=== PATIENT | female | born 1985 | race Caucasian/White ===

== ENCOUNTER 2017-09-30 21:25 | Inpatient (IN) | payer OTHER ==
[~2017-09-30] VITALS: Ht 160 cm; Wt 125.6 kg
[2017-09-30] MEDS ORDERED: LR(*) 1000 ML BAG 1,000 ML IV PRN (21:27)
[2017-09-30] MEDS ORDERED: ceFAZolin(*) 2GM/D5W 50ML 50 ML IVPB ONE (21:27)
[2017-09-30] MEDS ORDERED: METOCLOPRAMIDE 10 MG/2 ML SDV IVP ONE (21:30)
[2017-09-30] MEDS ORDERED: FAMOTIDINE 20 MG/50 ML PREMIX IVPB ONE (21:30)
[2017-09-30 21:35] VITALS: BP 154/78; Ht 160 cm; Wt 125.6 kg
[2017-09-30] MEDS ORDERED: PREN-127 PO (22:07)
[2017-09-30] MEDS ORDERED: NS(*) 0.9% 1000 ML BAG 1,000 ML IV ONE (22:30)
[2017-10-01] VITALS (17 sets, daily range): BP systolic 100–132; BP diastolic 53–94
[2017-10-01] MEDS ORDERED: LR(*) 1000 ML BAG 1,000 ML IV SCH (01:02)
[2017-10-01] MEDS ORDERED: OXYTOCIN 30 UNIT/D5LR 500 ML 500 ML ONE (01:23)
[2017-10-01] MEDS ORDERED: MORPHINE PF 5 MG/10 ML AMP ONE (01:24)
[2017-10-01] MEDS ORDERED: OXYTOCIN 10 UNIT/ML SDV ONE (01:24)
[2017-10-01 01:35] LABS: PLATELET COUNT, AUTOMATED 145 K/uL (150-450)
[2017-10-01] MEDS ORDERED: ONDANSETRON 4 MG/2 ML VIAL IVP ONE (01:35)
--- NOTE | 2017-10-01 01:38 | History & Physical ---
History of Present Illness EDC per U/S: Oct 07, 2013 Estimated Gestational Age: 39 Chief Complaint Contractions History of Present Illness 32yo at 39wks presents with UCx since 1400hrs yesterday. She presented with possible ROM and UCx. Amnisure is negative. However, despite IVF she has continued to have increasingly painful UCx. She denies VB. +FM. No preeclampsia symptoms. PNR reviewed. c/b hx of and desire for repeat; and prepregnancy BMI 45. History Patient's Blood Type: B Positive Rubella Status: Immune Group B Strep Screen: Negative Obstetrical History: G1: 36wk FAVD, with reported skull fracture of the baby G2: 39wk PLTCD, failed induction (8#) G3: Current, last US revealed 8#9oz Allergies: Coded Allergies: No Known Drug Allergies (Unverified , 09/30/17) Social History: No T/E/D. Med Rec Home Meds Reported Medications Vits W-Ca,Fe,Fa(<1MG) ( VITAMINS) 1 Each Tablet, 1 EACH PO DAILY, TAB 09/30/17 Review of Systems Constitutional: No Fever Neurological: No Syncope, No Dizziness Eyes: No Vision Change Cardiovascular: No Chest Pain Respiratory: No Shortness of Breath Gastrointestinal: No Nausea, No Vomiting, No Diarrhea Genitourinary: No Dysuria Musculoskeletal: No Pain Psychiatric: No Depression, No Anxiety Exam General Exam Vital Signs VS reviewed Initial BP is elevated, but has settled to normal range after arrival General Apperance: Alert/Awake/No Acute Distress Neuro: No Gross deficits Eyes: Normal Extraocular Movement & Vison Cardiovascular: Regular Rate and Rhythm Respiratory: No Respiratory Distress Abdomen: Gravid - Non-Tender : Normal Musculoskeletal: No Weakness/Pain Extremities: No Cyanosis,Clubbing or Edema Integumentary: Skin Intact without Lesions or Rash Psychological: Alert & Oriented X3, Appropriate Mood & Affect Cervical Dialation: 1 Cervical Effacement (%): 50 Cervical Consistency: Firm Cervical Position: Posterior Station: -2 Presentation: Vertex Uterine Contractions(Q min): 5 Uterine Contraction Strength: Strong UC Resting Tone: Soft Fetus Feeling Movement?: Yes FHT Category: I Medical Decision Making Pre-Admit Course Medical Record Review: Yes Assessment and Plan Problems: (1) Spontaneous onset of labor Assessment & Plan: 32yo at 39wks presents with UCx since 1400hrs yesterday. She presented with possible ROM and UCx. Amnisure is negative. However, despite IVF she has continued to have increasingly painful UCx. Will proceed with RLTCD and BTL. (2) History of section complicating Assessment & Plan: As above. Posterior placenta. (3) Request for sterilization Assessment & Plan: Discussed R/B/A of surgical sterilization. She has already discussed with her primary OB and is absolutely sure she would like to proceed. She does not desire future fertility. Her is present for the discussion and agrees. Will proceed with BTL. (4) Obesity affecting Assessment & Plan: Prepregnancy BMI 45. Now BMI is 49. Will plan Lovenox daily while inpatient to start POD#1. Problem Qualifiers (1) Obesity affecting : Trimester: third trimester Qualified Codes: O99.213 - Obesity complicating , third trimester KELSEY CODY MD October 01, 2017 01:38
[2017-10-01] MEDS ORDERED: OXYC-865 PO (01:41)
[2017-10-01] MEDS ORDERED: IBUP800T37 PO (01:41)
--- NOTE | 2017-10-01 02:58 | Post Operative Note ---
Operative Note - BAND DIRECTOR Operative Day Date: October 01, 2017 Physicians Surgeon: Rosemary Third Rail Installer: David Paulson RN Anesthesia: Spinal, Chapo Bejarano Diagnosis Pre-Op Diagnosis: IUP at 39w1d presenting in spontaneous labor History of and desire for repeat Request for sterilization Post-Op Diagnosis: Same Male 0217hrs, 3948g, Apgars 8/8 Procedure Procedure(s): RLTCD BTL Fluids Fluids: IVF: 1900cc Estimated Blood Loss: 600cc KELSEY CODY MD October 01, 2017 02:58
[2017-10-01] MEDS ORDERED: DIPHTH/TETANUS/ACEL. PERTUSSIS IM ONE (03:05)
[2017-10-01] MEDS ORDERED: MEASLES,MUMP,RUBELLA VAC 0.5ML SC ONE (03:05)
[2017-10-01] MEDS ORDERED: OXYTOCIN 30 UNIT/D5LR 500 ML 500 ML IV PRN (03:05)
[2017-10-01] MEDS ORDERED: LANOLIN OINT 7 GM TUBE TP PRN (03:05)
[2017-10-01] MEDS ORDERED: PROMETHAZINE 25 MG/ML 1 ML AMP IVP PRN (03:05)
[2017-10-01] MEDS ORDERED: ACETAMINOPHEN 325 MG TAB PO PRN (03:05)
[2017-10-01] MEDS ORDERED: ONDANSETRON 4 MG/2 ML VIAL IV PRN (03:05)
[2017-10-01] MEDS ORDERED: SIMETHICONE 80 MG CHEW CHEW PRN (03:05)
[2017-10-01] MEDS ORDERED: INFLUENZA VIRUS VAC 0.5 ML SYR IM ONE (03:05)
[2017-10-01] MEDS ORDERED: MAGNESIUM HYDROXIDE* 30ML UDCP PO PRN (03:05)
[2017-10-01] MEDS ORDERED: diphenhydrAMINE 50 MG/ML VIAL IVP PRN (04:30)
[2017-10-01] MEDS: KETOROLAC 30 MG/ML VIAL IVP SCH ×3 (06:08→17:50)
[2017-10-01] MEDS: NALBUPHINE HCL 10 MG/ML AMP IVP PRN ×2 (06:19→14:22)
--- NOTE | 2017-10-01 06:43 | OPERATIVE REPORT 1 ---
EVENT DATE: October 01, 2017 SURGEON: Binta Riley MD ANESTHESIA: Spinal with Chapo Sanz CRNA ELECTRICIAN SHIP: Allison Paulson RN PREOPERATIVE DIAGNOSIS 1. Intrauterine at 39 weeks and 1 day, presenting in spontaneous labor. 2. History of delivery and desire for repeat . 3. Request for surgical sterilization. POSTOPERATIVE DIAGNOSIS 1. Intrauterine at 39 weeks and 1 day, presenting in spontaneous labor. 2. History of delivery and desire for repeat . 3. Request for surgical sterilization. 4. Delivery of a viable male infant at 0217 hours weighing 3948 grams or 8 pounds 11 ounces with Apgars of 8 at one minute and 8 at five minutes. PROCEDURE PERFORMED 1. Repeat low transverse delivery. 2. Bilateral tubal ligation. IV FLUIDS 1900 mL. ESTIMATED BLOOD LOSS 600 mL. INDICATIONS FOR PROCEDURE This patient is a 32-year-old 3 para 2 who presented at 39 weeks and 1 day with complaints of uterine contractions and possible loss of fluid. Her AmniSure was negative, however, despite IV fluids, she continued to have increasingly painful uterine contractions. She was therefore admitted for spontaneous labor and prepared for delivery. She had a history of delivery x one and desired a repeat . She also has requested surgical sterilization during the period, and continues to desire this today. PROCEDURE The patient was properly identified and taken to the operating room. She was administered Ancef preoperatively for prophylactic antibiotics. She was then administered a spinal anesthetic and placed in a supine position with a leftward tilt. A Lama catheter was placed with return of clear fluid, and SCDs were on and running. The patient's abdomen was then prepped and draped in usual fashion for a low abdominal surgery. After adequate anesthesia was confirmed, the prior skin incision was identified and followed along for a new incision with a scalpel. The incision was then carried down to the level of the rectus fascia, which was then nicked in the midline and incision extended in bilateral fashion. The rectus fascia was then from the underlying rectus muscle superiorly to the infraumbilical plate, and then inferiorly to the dome of the bladder. Once this was achieved, the peritoneum was identified and entered in blunt fashion, and the incision was extended in a blunt fashion. The bladder blade was then placed, and the vesicouterine peritoneum was reflected off of the lower uterine segment, and the bladder blade was replaced. A low transverse incision was made along the uterine wall with a scalpel to the level of the amniotic sac. The incision was then extended bluntly in a cephalocaudal manner. The amniotic sac was then ruptured, and copious fluid returned. Next, the infant's vertex was delivered followed by the anterior shoulder, at which time a triple nuchal cord was noted and relieved around the head. Posterior shoulder was then easily delivered. The infant had spontaneous cry and spontaneous movement of all four extremities. The was dried, stimulated, and the oropharynx and nasopharynx were bulb suctioned. After one minute, the cord was clamped x two and cut. The baby was then passed to nursing personnel in good condition. Cord blood was then obtained and passed off the table. The placenta was subsequently delivered manually and passed off the table. The uterus was exteriorized and explored for any remaining clots, debris or products of conception. The uterine incision was then reapproximated using an #0-Vicryl from one apex to the next. A second imbricating layer of an #0-Monocryl was then utilized for closure of the hysterotomy site. Attention was then turned to the tubal ligation. The patient's right fallopian tube was identified and carried down to the level of the fimbria. The mid- isthmic portion of the tube was grasped with a [place] and elevated to allow for formation of a knuckle of tube using an #0 plain gut suture, which was tied down to form this knuckle. A second plain gut suture was then utilized underneath that, and using Metzenbaum scissors, the section of tube was excised and tagged and sent to pathology. Hemostasis was ensured. The same procedure was performed on the left side by elevating the mid isthmic portion of the tube with a Toledo, tying down twice with a plain gut suture and removal of the segment of tube. Once hemostasis was ensured on both sides, the uterus was replaced into the abdominal cavity. The pericolic gutters were cleared of clots and debris. The hysterotomy site and tubal sites were reinspected and noted to be hemostatic. The peritoneum was then reapproximated using a 3-0 Monocryl followed by reapproximation of the muscle in the midline. Copious irrigation was performed of the rectus muscle, and hemostasis was noted. The rectus fascia was then reapproximated using an #0-Vicryl in a nonlocking fashion , working from one apex to the next. Irrigation of the subcutaneous tissue was performed, and hemostasis was ensured. The subcutaneous tissue was reapproximated using a 3-0 Monocryl followed by closure of the skin with Insorb lou. A Primapore dressing was placed. The patient tolerated this procedure well, recovered in labor and delivery with her infant. All sponge, needle and instrument counts were correct at the end of this procedure. NOBLE
[2017-10-01] MEDS: DLR(*) 1000 ML BAG 1,000 ML IV PRN ×2 (07:09→13:52)
[2017-10-01] MEDS: FAMOTIDINE 20 MG TAB PO SCH ×2 (08:52→21:18)
[2017-10-01] MEDS: DOCUSATE CALCIUM 240 MG CAP PO SCH ×2 (08:52→21:18)
--- NOTE | 2017-10-01 09:05 | OB/GYN Progress Note ---
OB Subjective Progress Notes Subjective Pt is doing well. Pain controlled. Lama in and no attempt at ambulation yet since spinal still in affect. OB Objective Physical Exam Vital Signs Date Time Temp Pulse Resp B/P (MAP) Pulse Ox O2 Delivery O2 Flow Rate FiO2 10/01/17 07:30 Nasal Cannula 2.0 10/01/17 07:30 98.0 75 18 121/85 (97) 90 Intake and Output 10/02/17 07:00 Output Total 150 ml Balance -150 ml Output Urine Total 150 ml # Voids 1 General Appearance: Alert/Awake/No Acute Distress Neurological: No Gross deficits Eyes: Normal Extraocular Movement & Vison Cardiovascular: Normal Rhythm & Peripheral Pulses, Regular Rate and Rhythm Respiratory: No Respiratory Distress, Clear to Auscultation Abdomen: Soft, Non-Tender, Non-Distended, Fundus Firm Incision: Clean, Dry, Intact, Dressing Extremities: No Cyanosis,Clubbing or Edema Integumentary: Skin Intact without Lesions or Rash Psychological: Alert & Oriented X3, Appropriate Mood & Affect Result Diagram: 10/01/17 0114 Assessment and Plan Problems: (1) Status post delivery Assessment & Plan: POD#0 s/p RLTCD/BTL. Routine postop orders. (2) Request for sterilization Assessment & Plan: S/p BTL. (3) Obesity affecting Assessment & Plan: Prepregnancy BMI 45. Now BMI is 49. Will plan Lovenox daily while inpatient to start POD#1. Problem Qualifiers (1) Obesity affecting : Trimester: third trimester Qualified Codes: O99.213 - Obesity complicating , third trimester KELSEY CODY MD October 01, 2017 09:05
--- NOTE | 2017-10-01 09:38 | Anesthesia OB Pre-Anes Eval ---
History of Present Illness Anesthesia Start Date: October 01, 2017 Anesthesia Start Time: 01:48 OB Anesthesia Diagnosis: spontaneous labor, repeat c/section Current Complication: obesity EDC: Oct 07, 2017 : 3 Para: 3 Pain Ratin Result Diagram: 10/01/17 0114 Height (Inches): 63.00 Weight (Pounds): 277 BMI Calculated: 49.06 Past Medical History Medical History: obesity Surgical History: Previous Anesthesia: epidural Attended Childbirth Classes?: No Hx Anesthesia Reactions: No Hx Family Anesthesia Reaction: No Past Complications: obesity Home Meds Active Scripts Oxycodone Hcl/Acetaminophen (PERCOCET 5-325 MG TABLET) 1 Each Tablet, 1-2 TAB PO Q4-6H Y for pain, #40 TAB 0 Refills Prov:KELSEY CODY MD 10/01/17 Reported Medications Vits W-Ca,Fe,Fa(<1MG) ( VITAMINS) 1 Each Tablet, 1 EACH PO DAILY, TAB 09/30/17 Allergies: Coded Allergies: No Known Drug Allergies (Unverified , 09/30/17) Anesthesia OB ROS Eyes ROS: contacts in Airway Class: ll GI ROS: NPO Last Solids Date: September 30, 2017 Last Solids Time: 19:00 ASA Classification: 3, E (Planned repeat C/S, doing tonight due to spontaneous labor) Assessment and Plan Anesthesia Plan: HINA Anesthesia Stop Day: October 01, 2017 Anesthesia Stop Time: 03:01 ISABEL ROWLEY CRNA October 01, 2017 09:38
--- NOTE | 2017-10-01 18:00 | Anesthesia Post Eval Note ---
Anesthesia Post Eval Note Stable, afebrile. Pt able to participate in Eval: Yes Cardiovascular Status: Satisfactory Respiratory Status: Satisfactory Pain Managment: Satisfactory PO Nausea/Vomiting: Satisfactory Temperature Management: Satisfactory Mental Status: Satisfactory, Alert, Oriented X3 Post-Op Hydration Status: Satisfactory, Tolerating PO Well, Voiding w/o Difficulty Anesthesia Type: SAB Anesthesia Tolerance: Ambulatory without symptoms PDPH. She has itching secondary to IT Duramorph, being managed with prn Benadryl and Nubain. ISABEL ROWLEY TIRE DUSTER October 01, 2017 18:00
[2017-10-02] MEDS: IBUPROFEN 800 MG TAB PO SCH ×3 (00:17→18:33)
[2017-10-02 03:30] VITALS: BP_SYST 11; BP_SYST 111; BP_DIAS 54
--- NOTE | 2017-10-02 06:18 | OB/GYN Progress Note ---
OB Subjective Progress Notes Subjective Doing well. Pain controlled with oral medications. Tolerating regular diet. Ambulating. Voiding. Normal lochia. No preeclampsia symptoms. Having some breast feeding issues. OB Objective Physical Exam Vital Signs Date Time Temp Pulse Resp B/P (MAP) Pulse Ox O2 Delivery O2 Flow Rate FiO2 10/02/17 03:30 98.1 77 16 111/54 (73) 94 Nasal Cannula 1.0 General Appearance: Alert/Awake/No Acute Distress Neurological: No Gross deficits Eyes: Normal Extraocular Movement & Vison Cardiovascular: Normal Rhythm & Peripheral Pulses, Regular Rate and Rhythm Respiratory: No Respiratory Distress, Clear to Auscultation Abdomen: Soft, Non-Tender, Non-Distended, Fundus Firm Incision: Clean, Dry, Intact Extremities: No Cyanosis,Clubbing or Edema Integumentary: Skin Intact without Lesions or Rash Psychological: Alert & Oriented X3, Appropriate Mood & Affect Result Diagram: 10/01/17 0114 Assessment and Plan Problems: (1) Status post delivery Assessment & Plan: POD#1 s/p RLTCD/BTL. Routine postop orders. (2) Request for sterilization Assessment & Plan: S/p BTL. (3) Obesity affecting Assessment & Plan: Prepregnancy BMI 45. Now BMI is 49. Will plan Lovenox 80BID while inpatient. Problem Qualifiers (1) Obesity affecting : Trimester: third trimester Qualified Codes: O99.213 - Obesity complicating , third trimester KELSEY CODY MD October 02, 2017 06:18
[2017-10-02 07:12] LABS: PLATELET COUNT, AUTOMATED 120 K/uL (150-450)
[2017-10-02 07:45] VITALS: BP 116/70
[2017-10-02] MEDS ORDERED: ENOXAPARIN 40 MG/0.4ML SYR SC SCH (09:00)
[2017-10-02] MEDS: DOCUSATE CALCIUM 240 MG CAP PO SCH ×2 (09:34→21:26)
[2017-10-02] MEDS: FAMOTIDINE 20 MG TAB PO SCH ×2 (09:34→21:26)
[2017-10-02] MEDS: ENOXAPARIN 40 MG/0.4ML SYR SC SCH ×2 (09:38→21:26)
[2017-10-02] MEDS: NALBUPHINE HCL 10 MG/ML AMP IVP PRN (09:53)
[2017-10-02] MEDS ORDERED: ePHEDrine 25 MG/5 ML DISP.SYR IVP ONE (11:44)
[2017-10-02] MEDS ORDERED: PHENYLEPHRINE/NS/PF 0.4MG/10ML ONE (11:44)
[2017-10-02 13:30] VITALS: BP 120/61
[2017-10-02 19:12] VITALS: BP 115/67
[2017-10-03] MEDS: IBUPROFEN 800 MG TAB PO SCH ×2 (00:35→09:21)
--- NOTE | 2017-10-03 07:25 | OB/GYN Discharge Summary ---
Discharge Summary Reason for Hosp/Final Diag: (1) care following delivery Hospital Course & Plan: RLTCS, on pod 2, Pain controlled, Tolerating diet and activity. Baby . Normal lochia. Lates Vital Signs Vital Signs Date Time Temp Pulse Resp B/P (MAP) Pulse Ox O2 Delivery O2 Flow Rate FiO2 10/02/17 19:12 98.0 86 16 115/67 (83) 94 Room Air 10/02/17 03:30 1.0 Weight (Pounds): 277 Result Diagram: 10/02/17 0650 Condition: Improved Discharge: Home, Self Residential Meds Active Scripts Oxycodone Hcl/Acetaminophen (PERCOCET 5-325 MG TABLET) 1 Each Tablet, 1-2 TAB PO Q4-6H Y for pain, #40 TAB 0 Refills Prov:KELSEY CODY MD 10/01/17 Reported Medications Vits W-Ca,Fe,Fa(<1MG) ( VITAMINS) 1 Each Tablet, 1 EACH PO DAILY, TAB 09/30/17 [phone] Follow up in: 2 wks PO Discharge Diet: As Tolerates Discharge Activity: Pelvic Rest Copies to: ALEAH OSUNA MD, JOHN MD October 03, 2017 07:25
--- NOTE | 2017-10-03 07:30 | OB/GYN Progress Note ---
OB Subjective Progress Notes Subjective Pain controlled, Tolerating diet and activity. Baby . Normal lochia. GI: POS Flatus, NEG Nausea, NEG Vomiting : Voiding Well Pain: Mild OB Objective Physical Exam Vital Signs Date Time Temp Pulse Resp B/P (MAP) Pulse Ox O2 Delivery O2 Flow Rate FiO2 10/02/17 19:12 98.0 86 16 115/67 (83) 94 Room Air 10/02/17 03:30 1.0 General Appearance: Alert/Awake/No Acute Distress Neurological: No Gross deficits Eyes: Normal Extraocular Movement & Vison Cardiovascular: Normal Rhythm & Peripheral Pulses, Regular Rate and Rhythm Respiratory: No Respiratory Distress, Clear to Auscultation Abdomen: Soft, Non-Tender, Non-Distended, Bowel Sounds Present, Fundus Firm Incision: Clean, Dry, Intact Extremities: No Cyanosis,Clubbing or Edema, No Edema Integumentary: Skin Intact without Lesions or Rash Psychological: Alert & Oriented X3, Appropriate Mood & Affect Result Diagram: 10/02/17 0650 Assessment and Plan Problems: (1) care following delivery Assessment & Plan: Pain controlled, Tolerating diet and activity. Baby . Normal lochia. ALEAH OSUNA MD October 03, 2017 07:30
[2017-10-03 08:30] VITALS: BP 122/61
[2017-10-03] MEDS: DOCUSATE CALCIUM 240 MG CAP PO SCH (09:21)
[2017-10-03] MEDS: FAMOTIDINE 20 MG TAB PO SCH (09:21)
[2017-10-03] MEDS: ENOXAPARIN 40 MG/0.4ML SYR SC SCH (09:21)
== END 2017-10-03 10:30 | disposition home or self-care (01) | DRG 765 ==
LOC: OB 21:25 → OBSVTOIN 21:25 → OB 10-01 03:50
PROVIDERS: ADMIT Obstetrics & Gynecology; ATTEND Obstetrics & Gynecology
PROC: 0UB70ZZ Excision of Bilateral Fallopian Tubes, Open Approach (ICD-10-PCS; 2017-10-01)
PROC: 10D00Z1 Extraction of Products of Conception, Low, Open Approach (ICD-10-PCS; principal; 2017-10-01 01:48)
DX: O34.219 Maternal care for unspecified type scar from previous cesarean delivery (principal); Z68.42 Body mass index [BMI] 45.0-49.9, adult; O99.214 Obesity complicating childbirth; O69.81X0 Labor and delivery complicated by cord around neck, without compression, not applicable or unspecified; E66.9 Obesity, unspecified; Z30.2 Encounter for sterilization; Z3A.39 39 weeks gestation of pregnancy; Z37.0 Single live birth
CPT/HCPCS: 36415; 84112; 85025; 86850; 86900; 86901; 88302; J0690; J1200; J1650; J1885; J2270; J2300; J2370; J2405; J2590; J2765; J3490; J7030; J7120